=== PATIENT | female | born 1970 ===

== ENCOUNTER 2016-03-18 08:01 | Outpatient (CLI) | payer BC | END 2016-03-18 08:02 | disposition home or self-care (01) | LOC: NC 08:01 | PROVIDERS: ATTEND Nurse Practitioner Family | DX: E66.9 Obesity, unspecified (principal); Z71.3 Dietary counseling and surveillance ==

== ENCOUNTER 2016-04-01 11:07 | Outpatient (CLI) | payer BC | END 2016-04-01 11:08 | disposition home or self-care (01) | LOC: NC 11:07 | PROVIDERS: ATTEND Nurse Practitioner Family | DX: E66.9 Obesity, unspecified (principal); Z71.3 Dietary counseling and surveillance ==